=== PATIENT | male | born 1965 | race Native Hawaiian/Other Pacific Islander ===

== ENCOUNTER 2018-10-16 07:58 | Outpatient (CLI) | payer BC ==
[2018-10-16 08:12] LABS: PLATELET COUNT 213 K/uL (142-355)
[2018-10-16 08:55] LABS: POTASSIUM 4.6 mmol/L (3.6-5.2)
== END 2018-10-16 19:40 | disposition home or self-care (01) ==
LOC: LABW 07:58
PROVIDERS: Internal Medicine
DX: I10 Essential (primary) hypertension (principal); Z12.5 Encounter for screening for malignant neoplasm of prostate
CPT/HCPCS: 36415; 80053; 80061; 81000; 84153; 84402; 84403; 84439; 84443; 85027

== ENCOUNTER 2019-12-24 08:04 | Outpatient (CLI) | payer BC ==
[2019-12-24 08:47] LABS: POTASSIUM 4.8 mmol/L (3.6-5.2)
== END 2019-12-24 19:09 | disposition home or self-care (01) ==
LOC: LABW 08:04 → EDBD 08:04 → LABW 19:09
PROVIDERS: Internal Medicine
DX: I10 Essential (primary) hypertension (principal); R73.9 Hyperglycemia, unspecified
CPT/HCPCS: 36415; 80053; 80061

== ENCOUNTER 2023-07-14 11:04 | Emergency (ER) | payer BC ==
[~2023-07-14] VITALS: Ht 170.2 cm; Wt 93.0 kg
[2023-07-14 11:04] VITALS: TEMP 97.2
[2023-07-14 13:29] VITALS: BP 172/91
== END 2023-07-14 13:33 | disposition short-term general hospital (02) ==
LOC: ED 11:04
DX: S06.5XAA Traumatic subdural hemorrhage with loss of consciousness status unknown, initial encounter (principal); W01.0XXA Fall on same level from slipping, tripping and stumbling without subsequent striking against object, initial encounter
CPT/HCPCS: 96374; 96375; 99284